=== PATIENT | male | born 2005 | race Caucasian/White ===

== ENCOUNTER 2024-12-16 01:12 | Emergency (ER) | payer MEDICAID, OTHER ==
[~2024-12-16] VITALS: Ht 170.2 cm; Wt 79.4 kg
--- NOTE | 2024-12-16 03:52 | ED.PDOC ---
Psychiatric HPI Comments 19-year-old male presents to the ED via ambulance chief complaint accidental abuse of CBD. Patient states he took 15 mg for insomnia he notes no help and then took 250 for insomnia. Patient states did make him sleepy just made him feel weird. Noted some anxiety and panic. Denies SI SA HI HUI denies chest pain difficulty breathing shortness of breath. Chief Complaint: Anxiety Time Seen by MD: 01:20 Reviewed Notes: Nurses Notes, Director Corporate Compliance Notes, Medications, Allergies Information Source: Patient Mode of Arrival: EMS Past Medical History PAST MEDICAL HISTORY: Denies Past Medical History (Contd): Insomnia Surgical History: Denies all surgeries All Other Systems: Reviewed and Negative (see hpi) Physical Exam General Appearance: No Apparent Distress, Normal HEENT: Normal ENT Inspection, Pharynx Normal, TMs Normal Neck: Full Range of Motion, Non-Tender, Normal, Normal Inspection Respiratory: Chest Non-Tender, Lungs Clear, No Accessory Muscle Use, No Respiratory Distress, Normal Breath Sounds Cardiovascular: No Edema, No JVD, No Murmur, No Gallop, Normal Peripheral Pulses, Regular Rate/Rhythm Breast Exam: Deferred Gastrointestinal: No Organomegaly, Non Tender, No Pulsatile Mass, Normal Bowel Sounds, Soft Genitalia: Deferred Pelvic: Deferred Rectal: Deferred Extremities: Normal capillary refill, Normal range of motion, No pedal edema Musculoskeletal : Apperance: Normal Neurologic: Alert, No Motor Deficits, Normal Affect, Normal Mood, No Sensory Deficits Cerebellar Function: Normal Reflexes: Normal Skin: Dry, Normal Color, Warm Lymphatic: No Adenopathy Was a procedure done? Was a procedure done?: No Psych Differential Dx OD Differential Dx: Drug Overdose, Accidental, Intentional Other Differentail Dx Insomnia X-Ray, Labs, Meds, VS Vital Signs Date Time Temp Pulse Resp B/P (MAP) Pulse Ox O2 Delivery O2 Flow Rate FiO2 12/16/25 01:24 99.0 140 25 149/64 100 99.0 X-Ray, Labs, Meds, VS Comment Avoid CBD rest increase p.o. fluids with electrolytes. ER return precautions given patient indicates standing agrees with discharge plan of care. Time of 1ST Reevaluation: 01:20 Reevaluation 1ST: Unchanged Time of 2ND Reevaluation: 03:48 Reevaluation 2ND: Improved Patient Education/Counseling: Diagnosis, Treatment, Need For Follow Up Family Education/Counseling: No Family Present Departure 1 Departure Time of Disposition: 03:48 Impression: Primary Impression: Poisoning by synthetic cannabinoid Qualified Codes: T40.721A - Poisoning by synthetic cannabinoids, accidental (unintentional), initial encounter Disposition: 01 HOME / SELF CARE / HOMELESS Condition: Stable Discharged With: Self Critical Care Note Critical Care Time?: No Stability Stability form required: RYAN Amato Dec 16, 2024 03:52
[2024-12-16 04:11] VITALS: BP 156/70; PULSE 119; RESP 20; TEMP 99.2; O2SAT 97
== END 2024-12-16 04:11 | disposition home or self-care (01) ==
LOC: ER 01:12 → EDBD 01:12 → ER 04:11
DX: T40.721A Poisoning by synthetic cannabinoids, accidental (unintentional), initial encounter (principal); G47.00 Insomnia, unspecified; F41.9 Anxiety disorder, unspecified; X58.XXXA Exposure to other specified factors, initial encounter; Y93.89 Activity, other specified; Y92.89 Other specified places as the place of occurrence of the external cause; Y99.8 Other external cause status